=== PATIENT | male | born 1940 | race Caucasian/White ===

== ENCOUNTER 2017-03-24 11:47 | Outpatient (CLI) | payer OTHER ==
[2017-03-24 14:06] LABS: Hematocrit 40.1 % (42.0-52.0); Mean Platelet Volume 6.4 fL (7.4-10.4); Red Blood Cell (RBC) Count 3.94 mill/uL (4.70-6.10)
[2017-03-24 14:14] LABS: PTT 28.1 SEC (22.9-36.1); Prothrombin Time 14.4 SEC (12.0-14.7)
[2017-03-24 14:24] LABS: Bilirubin Negative (Negative); Blood, Urine Negative (Negative); Glucose, Urine (Dipstick) Negative (Negative); Ketone, Urine Negative (Negative); Nitrite Negative (Negative); Protein, Urine (Dipstick) Negative (Neg-Trace)
[2017-03-24 14:29] LABS: Anion Gap 16 mmol/L (10-20); BUN (Urea Nitrogen) 28 mg/dL (8.4-25.7); Bacteria/HPF None Seen HPF (None Seen); Calc. Creatinine Clearance 0 mL/min (70-130); Calcium 9.6 mg/dL (7.8-10.44); Carbon Dioxide 23 mmol/L (23-31); Chloride 103 mmol/L (98-107); Estimated GFR-MDRD 35; Hyaline Casts/LPF 0-3 HYALINE CAST LPF (0-3 Hyaline); RBC/HPF 0-3 HPF (0-3); Squamous Epithelial 0-3 HPF (0-3); WBC/HPF 0-3 HPF (0-3)
== END 2017-03-24 11:48 | disposition home or self-care (01) ==
LOC: LABBT 11:47
PROVIDERS: ATTEND Orthopaedic Surgery
DX: Z01.818 Encounter for other preprocedural examination (principal); M19.012 Primary osteoarthritis, left shoulder
CPT/HCPCS: 80048; 81001; 85027; 85610; 85730; 86850; 86900; 86901; 87081; 93005; 93010

== ENCOUNTER 2018-03-15 16:22 | Inpatient (IN) | payer MEDICARE, OTHER ==
[2018-03-15 18:18] LABS: #Basophils 0.1 thou/uL (0.0-0.2); #Eosinphils 0.4 thou/uL (0.0-0.7); #Lymphocytes 1.6 thou/uL (1.20-3.40); #Monocytes 0.8 thou/uL (0.11-0.59); #Neutrophils 9.9 thou/uL (1.40-6.50); %Basophils 0.6 % (0.0-1.0); %Eosinophils 2.8 % (0.0-10.0); %Lymphocytes 12.7 % (21.0-51.0); %Neutrophils 77.9 % (42.0-75.0); Hemoglobin 13.5 g/dL (14.0-18.0); Mean Corpuscular HGB CONC 34.7 g/dL (32.0-36.0); Mean Corpuscular Hemoglobin 33.9 pg (27.0-31.0); Mean Corpuscular Volume 97.7 fL (78.0-98.0); Mean Platelet Volume 6.5 fL (7.4-10.4); Platelet Count 203 thou/uL (130-400); RBC Distribution Width 11.9 % (11.5-14.5); Red Blood Cell (RBC) Count 3.98 mill/uL (4.70-6.10); White Blood Cell (WBC) Count 12.7 thou/uL (4.8-10.8)
--- NOTE | 2018-03-15 18:38 | RAD ---
AP VIEW PELVIS: 03/15/2018 HISTORY: Trauma. The patient fell from a standing position. FINDINGS: There is a comminuted, intertrochanteric right hip fracture with varus angulation of the fracture fra gments. The lesser trochanter fracture, as well as the medial aspect of the proximal femur fracture fragments, are displaced medially. There is mild separation of fracture fragments. No additional fr acture or dislocation is identified. Calcifications overly the pelvis, probably related to phlebolit hs and vascular type calcification. Degenerative changes are seen in the spine. There are mild dege nerative changes of the pubic symphysis. IMPRESSION: Comminuted intertrochanteric hip fracture with separation and mild displacement of fracture fragments , as well as varus angulation. POS: [facility]
[2018-03-15 18:41] LABS: ALT (SGPT) 18 U/L (8-55); AST (SGOT) 20 U/L (5-34); Albumin 4.1 g/dL (3.4-4.8); Alkaline Phosphatase 81 U/L (40-150); Anion Gap 13 mmol/L (10-20); BUN (Urea Nitrogen) 24 mg/dL (8.4-25.7); Bilirubin, Total 0.8 mg/dL (0.2-1.2); Calc. Creatinine Clearance 0 mL/min (70-130); Calcium 9.6 mg/dL (7.8-10.44); Carbon Dioxide 25 mmol/L (23-31); Chloride 106 mmol/L (98-107); Estimated GFR-MDRD 48; Globulin 3.3 g/dL (2.4-3.5); Glucose 126 mg/dL (83-110); Potassium 4.7 mmol/L (3.5-5.1); Protein, Total 7.4 g/dL (5.8-8.1); Sodium 139 mmol/L (136-145)
--- NOTE | 2018-03-15 18:43 | RAD ---
RIGHT KNEE FOUR VIEWS: 03/15/2018 HISTORY: Trauma. The patient fell from standing. FINDINGS: There is a right total knee prosthesis present. No hardware complication is seen. There is no fract ure or dislocation on this exam. The lateral view is rotated, which does limit evaluation, especiall y for evaluation of a joint effusion. Calcifications are seen in the subcutaneous soft tissues, prob ably related to phleboliths. There is a small lucency overlying the right lower extremity, at the le ronald of the proximal tibial diaphysis, which may actually be artifactual, as opposed to subcutaneous e mphysema, but subcutaneous emphysema related to laceration cannot be excluded based on this exam. IMPRESSION: 1. Right total knee prosthesis. 2. No acute osseous abnormality. 3. Small lucency overlying the distal right lower extremity, which could may be artifactual, as oppo sed to subcutaneous emphysema related to laceration, but this would be better assessed clinically. 4. Vascular calcifications and phleboliths. POS: [facility]
[2018-03-15 18:46] LABS: CKMB 2.2 ng/mL (0-6.6); Troponin I Less than 0.010 ng/mL (< 0.028)
--- NOTE | 2018-03-15 18:49 | CT ---
NONCONTRAST CT HEAD: 03/15/2018 HISTORY: Trauma. The patient fell from standing, after tripping, around 1430 hours. COMPARISON: None available. FINDINGS: There are scattered low density areas seen within the periventricular white matter, which are nonspec ific, but likely reflective of mild chronic small vessel ischemic changes. There is a low density ar ea seen in the inferior left basal ganglia, which is likely related to a lacunar infarction of indete rminate age, probably more remote in origin. There is no evidence of an acute cortical infarction, h emorrhage, mass effect, or midline shift. There is diffuse cerebral volume loss. The ventricular sy stem is normal in size, shape, and position for the degree of sulcal atrophy. No calvarial fracture is seen. The visualized paranasal sinuses and mastoid air cells are clear. IMPRESSION: 1. No acute intracranial abnormalities demonstrated. 2. Chronic small vessel ischemic changes and cerebral volume loss. 3. 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 POS: [facility]
--- NOTE | 2018-03-15 18:52 | RAD ---
PORTABLE AP CHEST X-RAY: 03/15/2018 HISTORY: Preoperative evaluation. FINDINGS: The cardiac silhouette and bronchovascular markings are accentuated by the shallow depth of inspirati on and the portable technique. However, the interstitial markings bilaterally are prominent, althoug h this is obtained in a shallow depth of inspiration, and this could be related to either pulmonary e abhishek or an infectious process. No pleural effusion is visualized. Remote right-sided rib fracture i s seen. A left glenohumeral prosthesis is present. There is right acromioclavicular joint osteoarth ritis, and the right humeral head does appear high-riding. Linear calcifications overly the left upp er quadrant. IMPRESSION: Increased interstitial densities bilaterally. This is probably attributable to the shallow depth of inspiration, but an element of pulmonary edema or infectious process cannot be entirely excluded. Fo llow-up chest x-ray is suggested. POS: [facility]
[2018-03-15] MEDS ORDERED: CEFAZOLIN/Water 2 GM/20 ML SYRINGE SLOW IVP SCH (19:00)
--- NOTE | 2018-03-15 19:08 | RAD ---
RIGHT HIP THREE VIEWS: 03/15/2018 HISTORY: Fall from standing. Injury after fall. FINDINGS: There is a comminuted right intertrochanteric hip fracture. The lesser trochanter fracture fragment, as well as the medial of the proximal femoral diaphysis, is displaced medially by 11 mm. The total length of the lesser trochanter fracture fragment, as well as the additional fracture fragment, media l aspect of proximal right femur, measures approximately 8.6 cm in length. There is varus angulation of the fracture fragments. No additional fracture is seen, and there is no dislocation. Calcificat ions overly the right hemipelvis, which may represent vascular type calcifications and phleboliths. Degenerative changes are seen in the spine. IMPRESSION: Comminuted intertrochanteric right hip fracture with separation and displacement of fracture fragment s, as described above. POS: [facility]
--- NOTE | 2018-03-15 20:56 | HP ---
DATE OF ADMISSION: 03/15/2018 REQUESTING PHYSICIAN: Dr. Page. ATTENDING SURGEON: Dr. Arthur. CONSULTATIONS: Orthopedics, Dr. Plummer. HISTORY OF PRESENT ILLNESS: The patient is a 77-year-old man who was walking when he roberto carlos ed and fell landing on his buttocks and had immediate pain to his right lower extremity. The patient was brought to the emergency department by ground EMS and underwent evaluation and examination and w as noted to have a comminuted right intertrochanteric femur fracture, at which time we were asked to evaluate the patient for admission and obtain orthopedic consultation. Patient denies loss of consci ousness or any syncopal type symptoms prior to falling. He does note though that he has been feeling "woozy" for the last couple of days. ALLERGIES: None. CURRENT MEDICATIONS: Patient does not have his list with him, but notes that he takes multiple medic ations. PAST MEDICAL HISTORY: Diabetes, glaucoma, hypertension. PAST SURGICAL HISTORY: Left shoulder surgery, bilateral knee replacements, kidney stone removal. SOCIAL HISTORY: Patient lives independently at home. He denies drug, tobacco or alcohol use. REVIEW OF SYSTEMS: Ten-point review of systems is negative, unless otherwise stated. PHYSICAL EXAMINATION: VITAL SIGNS: Blood pressure 100/61, heart rate 70, respirations 18, oxygen saturation 97% on room ai r, temperature is 97.9. GENERAL: Patient is resting comfortably in bed. He is awake, alert, and oriented x3. Manuelito coma scale is 15. HEENT: Head is normocephalic, atraumatic. Eyes: Extraocular motions intact. PERRLA bilaterally. Ears are atraumatic without discharge. Nose is atraumatic without discharge. Oropharynx is clear. NECK: Nontender. Trachea is midline. No JVD. CHEST: Clear to auscultation with good inspiratory and expiratory effort. HEART: Regular rate and rhythm. ABDOMEN: Soft, flat, nontender with active bowel sounds. Pelvis is stable with tenderness to palpat ion of the right hip consistent with his fracture. EXTREMITIES: Neurovascularly intact x4. Patient does have tenderness to palpation to right knee; fr om my exam, it appears to be more radiating from his hip then point tenderness. BACK: Nontender and atraumatic. LABORATORY DATA: White blood cell count 12.7, hemoglobin 13.5, hematocrit 38.9, platelets 203. Sodi um 139, potassium 4.7, chloride 106, CO2 is 25, BUN 24, creatinine 1.44, glucose 126. LFTs are unrem arkable. CK-MB 2.2, troponin less than 0.010. RADIOGRAPHIC FINDINGS: CT of the brain without contrast shows no acute intracranial abnormalities. AP chest x-ray shows bilateral increased interstitial densities, possibly related to shallow inspirat ion, pulmonary edema or infectious process. AP pelvis shows a comminuted intertrochanteric hip fract ure with separation, mild displacement of fracture fragments of the right hip. Views of the right hi p showed again a comminuted intertrochanteric right hip fracture. Views of the right knee showed no acute osseous abnormality. ASSESSMENT AND PLAN: 1. Status post ground level fall. 2. Right intertrochanteric femur fracture. 3. Acute pain secondary to above. 4. History of chronic kidney disease. 5. Multiple comorbidities. Plan will be to admit the patient to the surgical floor, pain control, pulmonary toilet, gastritis, m echanical VTE prophylaxis. We will make the patient n.p.o. after midnight with plans on undergoing s urgical procedure by Orthopedics tomorrow. The evaluation, examination, laboratory and radiographic findings will be discussed with Dr. Arthur after this dictation.
[2018-03-15 22:04] LABS: Bilirubin Negative (Negative); Blood, Urine Negative (Negative); Clarity CLEAR (Clear); Glucose, Urine (Dipstick) Negative (Negative); Leukocyte Trace (Negative); Nitrite Negative (Negative); Protein, Urine (Dipstick) Negative (Neg-Trace); Specific Gravity, Urine 1.017 (1.002-1.036); pH, Urine 7.5 (5.0-9.0)
[2018-03-15 22:05] LABS: Bacteria/HPF None Seen HPF (None Seen); Hyaline Casts/LPF 0-3 HYALINE CAST LPF (0-3 Hyaline); RBC/HPF 0-3 HPF (0-3); Squamous Epithelial None Seen HPF (0-3); WBC/HPF 0-3 HPF (0-3)
[2018-03-15] MEDS ORDERED: hydrALAZINE 20 MG/ML VIAL SLOW IVP PRN (23:11)
[2018-03-15] MEDS ORDERED: Ondansetron ODT 4 MG TAB PO PRN (23:11)
[2018-03-15] MEDS ORDERED: Ondansetron PF 4 MG/2 ML Vial IVP PRN (23:11)
[2018-03-15] MEDS ORDERED: Dextrose 50% Abboject 50 ML SYRINGE SLOW IVP PRN (23:11)
[2018-03-15] MEDS ORDERED: Dextrose 5% in Water 1,000 ML IV PRN (23:11)
[2018-03-15] MEDS: Sodium Chloride 0.9% 1,000 ML IV SCH (23:29)
[2018-03-15] MEDS ORDERED: Ondansetron PF 4 MG/2 ML Vial ONE (23:33)
[2018-03-15] MEDS: Acetaminophen 1,000 MG in Premix Bag 1 BAG IVPB SCH (23:34)
--- NOTE | 2018-03-16 00:13 | CON ---
DATE OF CONSULTATION: 03/15/2018 HISTORY OF PRESENT ILLNESS: We were asked by Trauma in the emergency room to see patient. The patie nt fell and sustained a right intertrochanteric fracture on the right. He was going to pay a bill an d tripped [place] [employer], tried to grab on to something before he fell, but he was unable to. He also hit his head. No loss of consciousness. His right leg is quite tender, especially with any upr ight sitting or movements of that extremity. Pain he describes as sharp, but mostly constant aching, no numbness and tingling down the legs. PAST MEDICAL HISTORY: Positive for cholesterol, diabetes, GERD, depression, glaucoma. PAST SURGICAL HISTORY: Kidney, total knees, shoulder. CURRENT MEDICATIONS: Atenolol, furosemide, gabapentin, metformin, ranitidine, simvastatin, trazodone , aspirin. ALLERGIES: None. SOCIAL HISTORY: [employer], single, lives in [place]. No alcohol or nicotine products. REVIEW OF SYSTEMS: Positive for right hip pain, otherwise rest of review of systems negative. PHYSICAL EXAMINATION: GENERAL: Well-nourished, mildly obese male, in the ER in moderate distress. Speech clear. Answers questions appropriately, is alert and oriented x3. HEENT: Normal exam. Face symmetric, tongue midline. NECK: Supple. RESPIRATORY: No distress. EXTREMITIES: Upper extremities: Equal size, shape, symmetry, normal bulk and tone. Lower extremiti es: Right lower extremity is mildly shortened, some outward rotation, otherwise sensations are intac t as well as DP and PT pulses. The patient is able to wiggle his toes, but he tries not to if it exa cerbates his pain. ASSESSMENT: Right intertrochanteric fracture. PLAN: He is a patient of Dr. Johnson's, myself and Dr. Plummer spoke with the patient. He would pr efer to have Dr. Johnson work on him as he was established with them which we are agreeable with. e patient will undergo a TFN nail. Surgery has been discussed with the patient. We will readdress t his tomorrow morning with Dr. Johnson comes in to speak with the patient. We explained the surgery a nd that Dr. Johnson will come in the morning and talk to him and he will be the second case after his morning case that scheduled. The patient is happy with the plan. Trauma will get him tucked in. O rders have been written for the surgery and antibiotics. We will consent him in the morning for his procedure. Nam Jackson PA-C, dictating for Tj Plummer M.D.
[2018-03-16 00:25] VITALS: BMI 37.0
[2018-03-16 04:15] LABS: #Eosinphils 0.1 thou/uL (0.0-0.7); #Lymphocytes 1.2 thou/uL (1.20-3.40); #Monocytes 0.7 thou/uL (0.11-0.59); #Neutrophils 8.3 thou/uL (1.40-6.50); %Basophils 0.3 % (0.0-1.0); %Eosinophils 0.5 % (0.0-10.0); %Lymphocytes 11.9 % (21.0-51.0); %Neutrophils 80.3 % (42.0-75.0); Hemoglobin 11.1 g/dL (14.0-18.0); Mean Corpuscular Hemoglobin 33.2 pg (27.0-31.0); Mean Corpuscular Volume 97.7 fL (78.0-98.0); Mean Platelet Volume 6.7 fL (7.4-10.4); Platelet Count 193 thou/uL (130-400); RBC Distribution Width 12.1 % (11.5-14.5); Red Blood Cell (RBC) Count 3.33 mill/uL (4.70-6.10); White Blood Cell (WBC) Count 10.3 thou/uL (4.8-10.8)
[2018-03-16 04:58] LABS: Anion Gap 14 mmol/L (10-20); BUN (Urea Nitrogen) 24 mg/dL (8.4-25.7); Calc. Creatinine Clearance 67 mL/min (70-130); Calcium 8.6 mg/dL (7.8-10.44); Carbon Dioxide 21 mmol/L (23-31); Chloride 108 mmol/L (98-107); Estimated GFR-MDRD 49; Glucose 224 mg/dL (83-110); Potassium 4.7 mmol/L (3.5-5.1); Sodium 138 mmol/L (136-145)
[2018-03-16] MEDS: Acetaminophen 1,000 MG in Premix Bag 1 BAG IVPB SCH ×3 (05:22→16:59)
[2018-03-16] MEDS: Sodium Chloride 0.9% 1,000 ML IV SCH ×2 (05:23→16:58)
[2018-03-16] MEDS ORDERED: CEFAZOLIN/Water 2 GM/20 ML SYRINGE ONE (09:00)
[2018-03-16] MEDS ORDERED: Ondansetron HCl/PF 4 MG/2 ML Vial IVP PRN ×2 (09:11→11:40)
[2018-03-16] MEDS: Famotidine 20 MG TAB PO SCH (09:42)
[2018-03-16] MEDS ORDERED: Fentanyl 100 MCG/2 ML VIAL ONE ×2 (10:08→11:49)
[2018-03-16] MEDS ORDERED: Promethazine HCl 25 MG/ML VIAL IM PRN (11:40)
[2018-03-16] MEDS ORDERED: Promethazine HCl 25 MG/ML VIAL SLOW IVP PRN (11:40)
--- NOTE | 2018-03-16 12:02 | OP ---
DATE OF PROCEDURE: 03/16/2018 PREOPERATIVE DIAGNOSIS: Right intertrochanteric hip fracture. POSTOPERATIVE DIAGNOSIS: Right intertrochanteric hip fracture. PROCEDURE PERFORMED: Right long intramedullary nailing IT hip fracture STAFF: Chad Johnson M.D. MATERIALS RECYCLER: Nam Jackson PA-C ANESTHESIA: García. The patient received general endotracheal intubation. ESTIMATED BLOOD LOSS: 150 mL. TOURNIQUET TIME: None. IMPLANTS: An 11 x 380 mm TFNA [employer]ynthes TFNA nail with a 95 mm compression screw , 105 was in and out, and a 5 mm locking screw 5 x 46 mm distal locking screw. ANTIBIOTICS: Ancef 2 grams, TXA 1 gram. COMPLICATIONS: None. HISTORY OF PRESENT ILLNESS: Mr. Pizano is a pleasant former patient of mine who presented after a ground level fall, sustaining a right intertrochanteric hip fracture. I discussed with patient the risks and benefits of surgery to include pain, scar, bleeding, infection, damage to vital structures, decreased range of motion, strength, continued pain despite surgical intervention, malunion, nonunion, damage to vital structures, DVT, loss of life or limb. The patient understands risks, benefits and elected to proceed. PROCEDURE IN DETAIL: Timeout was performed designating the patient's right lower extremity as the operative site based on sight, consents, and markings. After timeout the patient had a lateral incision made down through skin to the IT band and the trochanter. We placed a guide pin under fluoroscopic guidance. We had to make a couple of passes to position the trochanter, but I looked at AP and lateral radiographs to ensure that it was within the shaft before opening my opening reamer, placed opening reamer and passed my guidewire which was a little bit anterior. I reamed just the shaft up to a 12, measured for a 380 mm nail and placed 380 x 11 mm nail. I then placed my center pin for my screw in the center-center position. The patient was a little distracted, it measured to a 110, I placed 105 which was after compression was entirely too long, a prominent lateral, I did not feel that that would be a good position. Therefore, I placed a 95 mm screw compressed the fracture into place, I felt like on AP and lateral I had good center-center position and compressed the fracture into good position. I then locked, ligated down and took it off 1/2 turn to allow the fracture to compress. I then moved distally, made a lateral incision down the skin, drilled and placed a 5.0 locking screw distally. I washed. We closed with 0, 2-0, and sixto. The patient will be weightbearing as tolerated. The patient will be followed in-house by Trauma. The patient will likely need placement in a [facility] because he is single and lives alone and will need help. LANDRY
[2018-03-16] MEDS ORDERED: traMADol HCl 50 MG TAB PO PRN ×4 (12:47→21:08)
[2018-03-16] MEDS ORDERED: Cepastat Lozenges 1 LOZ PO PRN (12:47)
[2018-03-16] MEDS ORDERED: Fentanyl 100 MCG/2 ML VIAL SLOW IVP PRN (12:47)
[2018-03-16] MEDS ORDERED: Milk Of Magnesia 30 ML UDCUP PO PRN (12:47)
[2018-03-16] MEDS ORDERED: Fleet Enema 133 ML BOT PR PRN (12:47)
[2018-03-16] MEDS ORDERED: Bisacodyl 10 MG SUPP PR PRN (12:47)
[2018-03-16] MEDS ORDERED: ePHEDrine/0.9% NaCl/PF SYRINGE 50 mg/10 ml ONE (13:17)
[2018-03-16] MEDS ORDERED: PROPOFOL 200 MG/20 ML VIAL ONE (13:17)
[2018-03-16] MEDS ORDERED: PHENYLEPHRINE-NS 100 MCG/ML 10 ML SYRINGE ONE (13:17)
[2018-03-16] MEDS ORDERED: Ondansetron PF 4 MG/2 ML Vial ONE (13:17)
[2018-03-16] MEDS ORDERED: Dexamethasone 20 MG/5 ML VIAL ONE (13:17)
[2018-03-16] MEDS ORDERED: Glycopyrrolate 0.2 MG/ML 5 ML SYRINGE ONE (13:17)
[2018-03-16] MEDS ORDERED: Succinylcholine Chloride 20 MG/ML 10 ml SYRINGE FS ONE (13:17)
--- NOTE | 2018-03-16 14:01 | RAD ---
RIGHT HIP AND RIGHT FEMUR: INDICATIONS: Operative imaging during internal fixation of fracture. TECHNIQUE: Four fluoroscopic images were presented from the OR during the operative procedure. FINDINGS: The films demonstrate an intramedullary mary and compression screw transfixing the femoral neck and th e femoral shaft. Avulsion of the lesser trochanter is noted. POS: [facility]
[2018-03-16] MEDS: CEFAZOLIN/Water 2 GM/20 ML SYRINGE SLOW IVP SCH (16:56)
[2018-03-16] MEDS: Senokot S 8.6-50 MG TAB PO SCH (21:01)
[2018-03-16] MEDS: Ibuprofen 800 MG TAB PO SCH (22:33)
[2018-03-16] MEDS: Acetaminophen 500 MG TAB PO SCH (22:33)
[2018-03-17] MEDS ORDERED: traZODone HCl 50 MG TAB PO SCH ×2 (01:30→21:00)
[2018-03-17] MEDS: CEFAZOLIN/Water 2 GM/20 ML SYRINGE SLOW IVP SCH (01:42)
[2018-03-17] MEDS: Acetaminophen 500 MG TAB PO SCH ×4 (04:53→21:38)
[2018-03-17 06:24] LABS: Hemoglobin 8.6 g/dL (14.0-18.0); Mean Corpuscular HGB CONC 34.4 g/dL (32.0-36.0); Mean Corpuscular Hemoglobin 33.9 pg (27.0-31.0); Mean Corpuscular Volume 98.5 fL (78.0-98.0); Mean Platelet Volume 6.8 fL (7.4-10.4); Platelet Count 167 thou/uL (130-400); RBC Distribution Width 12.3 % (11.5-14.5); Red Blood Cell (RBC) Count 2.53 mill/uL (4.70-6.10); White Blood Cell (WBC) Count 13.9 thou/uL (4.8-10.8)
[2018-03-17] MEDS: Ibuprofen 800 MG TAB PO SCH ×3 (06:33→21:39)
[2018-03-17 06:47] LABS: Anion Gap 12 mmol/L (10-20); BUN (Urea Nitrogen) 21 mg/dL (8.4-25.7); Calc. Creatinine Clearance 64 mL/min (70-130); Calcium 8.2 mg/dL (7.8-10.44); Carbon Dioxide 23 mmol/L (23-31); Chloride 110 mmol/L (98-107); Estimated GFR-MDRD 47; Glucose 188 mg/dL (83-110); Potassium 4.8 mmol/L (3.5-5.1); Sodium 140 mmol/L (136-145)
--- NOTE | 2018-03-17 07:10 | ADD-HP ---
ADDENDUM CHIEF COMPLAINT: Right leg pain. This is an addendum to the H&P dictated by Dajuan Quiroz, trauma PA. For full details, please see his H&P, the details of which I have confirmed. In short, Mr. Pizano is a 77-year-old man who tripped while walking and fell on his buttocks. He mckeon d immediate pain in his right lower extremity and was brought to the emergency room by EMS. He was n oted to have a comminuted right intertrochanteric femur fracture, although he states that most of his pain is in the calf, in the hip area. I saw him this morning in day stay prior to his operation by Orthopedics and he had no other complaints at that time. PAST MEDICAL HISTORY: Diabetes, glaucoma, and hypertension. PAST SURGICAL HISTORY: Kidney stone removal, bilateral knee replacements, and shoulder surgery. SOCIAL HISTORY: He does not smoke, drink, or use illicit drugs and was not having any dizziness or l ightheadedness when he fell. He denies any problems with balance or any syncopal episodes. REVIEW OF SYSTEMS: Ten-system review of systems was negative. PHYSICAL EXAMINATION: A complete head-to-toe physical examination performed by myself was unremarkab le for any other injuries except for the right hip fracture. His feet were well perfused with normal sensation and perfusion. LABORATORY DATA: Morning labs were unremarkable. His hematocrit has gone down somewhat from 38.9 to 32.5. Creatinine is still mildly elevated at 1.4, but other electrolytes are okay. Images obtained in the emergency room including CT of the brain and x-rays of the chest, hip, pelvis, and knee were reviewed and no injuries noted except for the comminuted intertrochanteric right hip fracture. ASSESSMENT: Right hip fracture with no other injuries noted. He is a fairly good shape medically an d should be a good rehab candidate. Physical therapy and occupational therapy, and rehabilitation sc trista have been ordered for postoperative and once the patient's home medication list is confirmed, félix jose will start him back on his home medications.
[2018-03-17] MEDS ORDERED: Zolpidem Tartrate 5 MG TAB PO PRN (09:20)
[2018-03-17] MEDS: Lisinopril 2.5 MG TAB PO SCH (09:42)
[2018-03-17] MEDS: Finasteride 5 MG TAB PO SCH (09:42)
[2018-03-17] MEDS: FLUoxetine HCl 20 MG CAP PO SCH ×2 (09:43→20:37)
[2018-03-17] MEDS: Multivitamin W/ Minerals 1 TAB PO SCH (09:43)
[2018-03-17] MEDS: Tamsulosin HCl 0.4 MG CAP PO SCH ×2 (09:43→20:37)
[2018-03-17] MEDS: Senokot S 8.6-50 MG TAB PO SCH ×2 (09:44→20:38)
[2018-03-17] MEDS: Gabapentin 300 MG CAP PO SCH ×2 (09:46→20:38)
[2018-03-17] MEDS: Famotidine 20 MG TAB PO SCH (09:49)
[2018-03-17] MEDS: Ferrous Gluconate 324 MG TAB PO SCH ×2 (09:49→20:38)
[2018-03-17] MEDS: Polyethylene Glycol 3350 17 GM Packet PO SCH (10:53)
[2018-03-17] MEDS: Senokot 8.6 MG TAB PO SCH ×2 (10:53→20:41)
[2018-03-17] MEDS ORDERED: traMADol HCl 50 MG TAB PO PRN (15:59)
--- NOTE | 2018-03-17 16:28 | PRG ---
DATE OF SERVICE: 03/17/2018 SUBJECTIVE: Mr. Pizano is a 77-year-old morbidly obese man who is postoperative day #1, status post right long intramedullary nailing to an IT hip fracture. This morning, I saw the patient at the [facility] et of physical therapy. The patient reported severe right hip pain rated at 8/10, which limited his mobility. He tolerated oral intake. He has adequate urinary output. OBJECTIVE: VITAL SIGNS: This morning included blood pressure 105/58, pulse 78, respiratory rate is 18, temperat ure 97.8 degrees Fahrenheit, oxygen saturation is 93% on room air. HEENT: Reveals normocephalic and atraumatic. HEART: Reveals regular rate and rhythm, no murmurs or gallops auscultated. CHEST: Clear to auscultation bilaterally. Breathing is regular and unlabored. ABDOMEN: Soft, nontender, nondistended. EXTREMITIES: With 2+ radial and pedal pulses bilaterally. He has no ankle edema present. NEUROLOGIC: Reveals no focal deficits present. LABORATORY DATA: Today includes a CBC with 13,900 white blood cells, hemoglobin and hematocrit 8.6 a nd 24.9 respectively. Platelet count 167,000. Metabolic profile: Sodium 140, potassium 4.8, chlori de is 110, bicarbonate 23, BUN 21, creatinine is baseline 1.47, glucose 188. Total bilirubin is 2.0, phosphorus is 3.0. IMPRESSION: 1. Postoperative day #1, status post IM nailing to the right IT femur hip fracture. 2. Acute posttraumatic pain syndrome. 3. Acute blood loss anemia. 4. Stable chronic kidney disease. PLAN: Optimize pain control. Increase activity per physical and occupational therapy. Continue wit h chemical VTE prophylaxis at this time. We will repeat CBC in the morning. If hemoglobin is stable , consider resuming chemical VTE prophylaxis at that time. Above findings and plan discussed with the patient who indicates understanding of the information giv en. I answered his questions.
[2018-03-17] MEDS: traMADol HCl 50 MG TAB PO SCH (18:38)
[2018-03-17] MEDS ORDERED: Simvastatin 40 MG TAB PO SCH (21:00)
[2018-03-17 23:03] LABS: Hemoglobin 7.5 g/dL (14.0-18.0)
[2018-03-17] MEDS ORDERED: Hydrocortisone Sod Succ/PF 100 mg/2 ml Vial IVP SCH (23:45)
[2018-03-18] MEDS: traMADol HCl 50 MG TAB PO SCH ×3 (00:11→12:47)
[2018-03-18] MEDS: Acetaminophen 500 MG TAB PO SCH (04:25)
[2018-03-18] MEDS: Ibuprofen 800 MG TAB PO SCH ×2 (06:11→14:20)
[2018-03-18] MEDS: Hydrocortisone Sod Succ/PF 100 mg/2 ml Vial IVP SCH ×2 (06:11→14:17)
[2018-03-18 07:29] LABS: #Monocytes 0.5 thou/uL (0.11-0.59); #Neutrophils 8.6 thou/uL (1.40-6.50); %Basophils 0.2 % (0.0-1.0); %Eosinophils 0.5 % (0.0-10.0); %Lymphocytes 9.8 % (21.0-51.0); %Monocytes 4.5 % (0.0-10.0); %Neutrophils 85.1 % (42.0-75.0); Hemoglobin 9.4 g/dL (14.0-18.0); Mean Corpuscular HGB CONC 33.8 g/dL (32.0-36.0); Mean Corpuscular Hemoglobin 33.5 pg (27.0-31.0); Mean Corpuscular Volume 99.1 fL (78.0-98.0); Mean Platelet Volume 6.5 fL (7.4-10.4); Platelet Count 149 thou/uL (130-400); RBC Distribution Width 12.5 % (11.5-14.5); Red Blood Cell (RBC) Count 2.79 mill/uL (4.70-6.10); White Blood Cell (WBC) Count 10.1 thou/uL (4.8-10.8)
[2018-03-18] MEDS ORDERED: Bisacodyl 10 MG SUPP PR SCH (09:00)
[2018-03-18] MEDS: Gabapentin 300 MG CAP PO SCH (09:31)
[2018-03-18] MEDS: Famotidine 20 MG TAB PO SCH (09:31)
[2018-03-18] MEDS: FLUoxetine HCl 20 MG CAP PO SCH (09:31)
[2018-03-18] MEDS: Senokot 8.6 MG TAB PO SCH (09:32)
[2018-03-18] MEDS: Tamsulosin HCl 0.4 MG CAP PO SCH (09:32)
[2018-03-18] MEDS: Ferrous Gluconate 324 MG TAB PO SCH (09:32)
[2018-03-18] MEDS: Multivitamin W/ Minerals 1 TAB PO SCH (09:32)
[2018-03-18] MEDS: Finasteride 5 MG TAB PO SCH (09:32)
[2018-03-18] MEDS: Lisinopril 2.5 MG TAB PO SCH (09:32)
[2018-03-18] MEDS: Senokot S 8.6-50 MG TAB PO SCH (09:33)
[2018-03-18] MEDS: Polyethylene Glycol 3350 17 GM Packet PO SCH (09:33)
[2018-03-18 16:01] VITALS: BP 137/67; TEMP 97.8
--- NOTE | 2018-03-19 01:55 | DIS-2 ---
DATE OF ADMISSION: 03/15/2018 DATE OF DISCHARGE: 03/18/2018 RESIDENT: Cindi Capone MD SUPERVISING ATTENDING: Dr. Monique. CONSULTATIONS: Case management PT/OT, orthopedics Surgery. PROCEDURES: Right long intramedullary nailing IT hip fracture on 03/16. PRIMARY DIAGNOSIS: Right intertrochanteric hip fracture. SECONDARY DIAGNOSES: Diabetes, glaucoma, and hypertension. DISCHARGE MEDICATIONS: 1. Aspirin 81 mg oral twice daily. 2. Ibuprofen 800 mg oral every 8 hours as needed. 3. Guaifenesin/dextromethorphan (Mucinex DM one tablet oral twice daily). 4. Simvastatin 40 mg oral at bedtime. 5. Fluoxetine HCL 20 mg oral twice daily. 6. Acetaminophen 500 mg oral twice daily. 7. Fluoxetine HCL 150 mg oral twice daily. 8. Lisinopril (Zestril) 2.5 mg oral daily. 9. Multivitamin one tablet oral daily. 10. Trazodone HCL 100 mg oral at bedtime. 11. Gabapentin 300 mg oral twice daily. 12. Tamsulosin HCL (Flomax) 0.4 mg oral twice daily. DISCONTINUED MEDICATIONS: 1. Aspirin 81 mg oral daily. 2. Ciprofloxacin 500 mg oral twice a day. 3. Hydrocodone 5/325 (Cosmos) 1-2 tabs q.4 hours as needed. HISTORY OF PRESENT ILLNESS/HOSPITAL COURSE: This is a 77-year-old male who tripped while walking and fell on his buttocks. He was found to have a comminuted right intertrochanteric femur fracture status post fall. The patient was taken for right long intramedullary nailing intertrochanteric fracture repair on 03/16/[address] Johnson. The patient tolerated the procedure well with no complications. The patient has been participating in physical and occupational therapy. The patient is tolerating p.o. well, ambulating and passing gas. Today, the patient was sitting comfortably in the chair at the bedside. He was examined and the plan was discussed and formulated with Dr. Monique. He will be placed at an inpatient rehab facility upon discharge. DISPOSITION: Stable. DISCHARGE INSTRUCTIONS: 1. Location: Inpatient rehabilitation. 2. Diet: Consistent carbohydrates/diabetic diet. 3. Activity: As tolerated. 4. Follow up with Dr. Johnson in 1 week. [facility]
--- NOTE | 2018-03-20 11:59 | EKG ---
Test Reason : Blood Pressure : / mmHG Vent. Rate : 061 BPM Atrial Rate : 061 BPM P-R Int : 218 ms QRS Dur : 140 ms QT Int : 446 ms P-R-T Axes : 066 -63 017 degrees QTc Int : 448 ms Sinus rhythm with 1st degree A-V block Right bundle branch block Left anterior fascicular block Bifascicular block Abnormal ECG Confirmed by SHERI SOLORZANO ([id number]), newspaper editor managing YOLY TAYLOR ([id number]) on 03/20/2018 11:59:08 AM Referred By: Confirmed By:SHERI SOLORZANO
== END 2018-03-18 16:40 | DRG 481 ==
LOC: ERS 16:22 → SURG A 23:06
PROVIDERS: ADMIT Surgery; ATTEND Surgery
PROC: 0QS636Z Reposition Right Upper Femur with Intramedullary Internal Fixation Device, Percutaneous Approach (ICD-10-PCS; principal; 2018-03-16)
PROC: 30233N1 Transfusion of Nonautologous Red Blood Cells into Peripheral Vein, Percutaneous Approach (ICD-10-PCS; 2018-03-18)
DX: S72.141A Displaced intertrochanteric fracture of right femur, initial encounter for closed fracture (principal); D62 Acute posthemorrhagic anemia; W18.30XA Fall on same level, unspecified, initial encounter; Z79.84 Long term (current) use of oral hypoglycemic drugs; H40.9 Unspecified glaucoma; Z79.82 Long term (current) use of aspirin; Z96.653 Presence of artificial knee joint, bilateral; E66.01 Morbid (severe) obesity due to excess calories; Z68.37 Body mass index [BMI] 37.0-37.9, adult; I12.9 Hypertensive chronic kidney disease with stage 1 through stage 4 chronic kidney disease, or unspecified chronic kidney disease; E11.22 Type 2 diabetes mellitus with diabetic chronic kidney disease; N18.9 Chronic kidney disease, unspecified; E78.00 Pure hypercholesterolemia, unspecified; K21.9 Gastro-esophageal reflux disease without esophagitis; F32.9 Major depressive disorder, single episode, unspecified
CPT/HCPCS: 36415; 36430; 70450; 71045; 72170; 76001; 80048; 80053; 81003; 81015; 82533; 82553; 83735; 84100; 84484; 85025; 85027; 86850; 86900; 86901; 93005; 96360; C1713; C1769; G0390; G8978-GP-CM; G8979-GP-CI; G8987-GO-CL; G8988-GO-CJ; J0131; J1100; J1720; J2270; J2405; J2704; J3010; P9016

== ENCOUNTER 2018-03-23 11:56 | Outpatient (CLI) | payer MEDICARE ==
--- NOTE | 2018-03-23 13:52 | RAD ---
PA AND LATERAL CHEST: HISTORY: New onset wheezing. FINDINGS: Heart size is enlarged. Pulmonary vessels are engorged with increased perihilar lung markings. IMPRESSION: Cardiomegaly with moderate pulmonary edema change. POS: [facility]
== END 2018-03-23 11:57 | disposition home or self-care (01) ==
LOC: RAD 11:56
PROVIDERS: ATTEND Internal Medicine
DX: D64.9 Anemia, unspecified (principal); I51.7 Cardiomegaly; I10 Essential (primary) hypertension
CPT/HCPCS: 71046